=== PATIENT | female | born 1965 | race Caucasian/White ===

== ENCOUNTER 2017-11-29 20:34 | Emergency (ER) | payer OTHER ==
[~2017-11-29] VITALS: Ht 160 cm; Wt 99.8 kg
--- NOTE | 2017-11-29 20:43 | ED THROAT/DENTAL COMPLAINT ---
History of Present Illness General Chief Complaint: Sore Throat, Dental Pain Stated Complaint: SWELLING R SIDE FACE, TOOTHACHE Source: patient Exam Limitations: no limitations Vital Signs & Intake/Output Vital Signs & Intake/Output Vital Signs Date Time Temp Pulse Resp B/P B/P Pulse O2 O2 Flow FiO2 Mean Ox Delivery Rate 11/29 2334 98.1 75 20 110/62 93 Room Air 11/29 2046 99.1 97 20 137/65 93 Room Air ED Intake and Output 11/30 0000 11/29 1200 Intake Total 0 Output Total Balance 0 Intake, Oral 0 Patient 220 lb Weight Weight Estimated Measurement Method Allergies Coded Allergies: MDX - Aspirin (04/10/10) MDX - Codeine (04/10/10) MDX - Penicillin V (From Penicillin V Potassium) (04/10/10) MDX - Sulfur (04/10/10) Uncoded Allergies: Food Allergies EGG WHITE, FRIED FOODS Med Allergies PCN, ASA, SULFA, CODEINE Reconcile Medications Aspirin (Alireza Chewable Aspirin) 81 MG TAB.CHEW HEART (Reported) Calcium Carb/Vit D3/Minerals (Calcium +D & Minerals Chew Tab) 600 MG-400 TAB.CHEW SUPPLEMENT (Reported) Cholecalciferol (Vitamin D3) (Vitamin D) 1,000 UNIT TABLET SUPPLEMENT (Reported ) TWO TABLETS DAILY Escitalopram Oxalate 10 MG TABLET DEPRESSION (Reported) Losartan Potassium (Cozaar) 25 MG TABLET DIABETES (Reported) Metformin HCl 500 MG TABLET DIABETES (Reported) Niacin (Niaspan) 500 MG TAB.ER.24H HYPERLIPIDEMIA (Reported) Nitroglycerin (Nitro-Dur) 0.2 MG/HOUR PATCH.TD24 CP (Reported) Norethindrone (Erin) 0.35 MG TABLET CONTRACEPTIVE (Reported) Olanzapine (Zyprexa) 15 MG TABLET SCHIZOPHRENIA (Reported) Omeprazole 20 MG CAPSULE.DR FORRESTER (Reported) Risperidone (Risperdal) 0.5 MG TABLET DEMENTIA (Reported) Risperidone (Risperdal) 2 MG TABLET DEMENTIA (Reported) Rosuvastatin Calcium (Crestor) 5 MG TABLET HIGH CHOLESTEROL (Reported) Sennosides/Docusate Sodium (Docusate Sodium-Senna Tablet) 8.6 MG-50 MG TABLET CONSTIPATION (Reported) 2 TABS QHS Vitamin E (Dl,Tocopheryl Acet) (Vitamin E) 400 UNIT CAPSULE SUPPLEMENT ( Reported) 2 CAPSULES DAILY Triage Note: PT BIBA FROM ECF DUE TO WORSENING RIGHT UPPER TOOTH PAIN ?CYST. PT ALSO HAVING RIGHT EAR PAIN AND RIGHT EYE PAIN. RIGHT EYE IS RED AND SWOLLEN. Triage Nurses Notes Reviewed? yes HPI: 52 yo F PMH MS, DM presenting with dental pain, right facial swelling. Patient endorses right upper mouth/dental pain for the last several months ("its been that way for eons"), worse in the last 1-2 weeks, per patient scheduled for follow up with dentist later 12/12 for removal. New right facial swelling for the last 2-3 days , worst around right eyebrow in area of recent abrasion from scratching face, no pain with eye movement, no visual changes. C/O generalized pain and swelling to right face. (Wilbur DEL CASTILLO,Jeanmarie) Past History Travel History Traveled to [place] past 21 day No Medical History Any Pertinent Medical History? see below for history Surgical History Surgical History: none Psychosocial History What is your primary language Com[place]an Family History Hx Contributory? No (Jeanmarie Bowles MD) Review of Systems Review of Systems Constitutional: Reports: no symptoms. EENTM: Reports: eye pain, mouth pain, tooth pain. Respiratory: Reports: no symptoms. Cardiovascular: Reports: no symptoms. GI: Reports: no symptoms. Genitourinary: Reports: no symptoms. Musculoskeletal: Reports: no symptoms. Skin: Reports: no symptoms. Neurological/Psychological: Reports: no symptoms. Hematologic/Endocrine: Reports: no symptoms. Immunologic/Allergic: Reports: no symptoms. All Other Systems: Reviewed and Negative (Wilbur DEL CASTILLO,Jeanmarie) Physical Exam Physical Exam General Appearance: well developed/nourished, no apparent distress, alert, awake Head: swelling, tenderness Eyes: Bilateral: PERRL, EOMI. Mouth/Throat: dental tenderness Neck: normal inspection, full range of motion, no midline tenderness Cardiovascular/Respiratory: normal breath sounds, regular rate/rhythm, no respiratory distress Comments: HEENT: Dental trudy in eroded right upper posterior molar without erythema, drainage, or peripical abscess, mild TTP, abrasion to rigth lateral eyebrow with associated erythema and swelling, EOMI without pain or restriction Core Measures ACS in differential dx? No Sepsis Present: No Sepsis Focused Exam Completed? No (Jeanmarie Bowles MD) Progress Differential Diagnosis: aspirated tooth, carious tooth, epiglottitis, Ludwigs angina, meningitis, odontogenic abscess, alanna-tonsillar abscess, pharyngeal for. body, stomatitis/gingivitis, strep pharyngitis, tooth fracture Plan of Care: Orders Procedure Date/time Status LACTIC ACID 11/29 2113 Complete CBC WITHOUT DIFFERENTIAL 11/29 2113 Complete BASIC METABOLIC PANEL 11/29 2113 Complete Laboratory Tests 11/29/172119: Anion Gap 15, Estimated GFR > 60, BUN/Creatinine Ratio 14.0, Glucose 194 H, Lactic Acid 1.8, Calcium 9.5, CBC w Diff NO MAN DIFF REQ, RBC 4.63, MCV 83.4, MCH 26.9 L, RDW 15.4 H, MPV 8.8, Gran % 63.0, Lymphocytes % 24.4, Monocytes % 10.2 H, Eosinophils % 2.0, Basophils % 0.4, Absolute Granulocytes 5.4, Absolute Lymphocytes 2.1, Absolute Monocytes 0.9 H, Absolute Eosinophils 0.2, Absolute Basophils 0, PUBS MCHC 32.2 L Physician MDM: 52 yo F PMH MS, DM presenting with dental pain, right facial swelling. VSS, exam as above. DDx: Cellulitis, Dental infection, deep head/neck space infection, low concern for orbital cellulitis or meningitis. Labs unremarkable. Clindamycin for dental infection and cellulitis. Signed out, dispo pending imaging, likely D/C back to ECF on Clindamycin with close dental f/u if no deep space infection on CT. (Wilbur DEL CASTILLO,Jeanmarie) Comments: 11/30/2017 1:24:02 AM patient signed out to me by Dr. Bowles at shift varnish remover. CAT scan reveals parotitis. (Maria Fernanda DEL CASTILLO,Brett Nunez) Departure Departure Disposition: HOME OR SELF CARE Condition: Stable Referrals: Kevyn DEL CASTILLO,Yanet (PCP/Family) Departure Forms: Customer Survey General Discharge Information (Wilbur DEL CASTILLO,Jeanmarie) Departure Clinical Impression Primary Impression: Infected dental carries Secondary Impressions: Parotitis, acute Additional Instructions: Clindamycin as prescribed. Ibuprofen as needed for pain. Follow-up with your primary care physician on Friday for reevaluation. Follow-up with your dentist this week. Return if any concerns or sudden worsening. Please note that there might be incidental findings in your evaluation that are unrelated to the current emergency department visit. Please notify your primary care doctor about this emergency department visit in order to obtain and review all of the testing performed so that these incidental findings can be monitored as needed. If you had an x-ray performed, please understand that some fractures may not be seen on the initial set of x-rays. If your symptoms persist you might need a repeat set of x-rays to check for such a fracture. If you had a laceration evaluated, please understand that foreign bodies such as glass or wood may not be visible to the naked eye or on plain x-rays. If the wound becomes red, swollen, increasingly more painful or if there is any drainage from the wound, please have it reevaluated by a physician for the possibility of a retained foreign body. If you're unable to follow up as outlined in the discharge instructions please return to the emergency department. Thank you for choosing the [facility] Emergency Department for your care. It was a pleasure to serve you today. Brett Irving M.D. [facility] (Maria Fernanda DEL CASTILLO,Brett Nunez)
[2017-11-29] MEDS ORDERED: DOCUSATE SODIU1 EACH PO (21:02)
[2017-11-29] MEDS ORDERED: ESCITALOPRAM OX10 MG PO (21:03)
[2017-11-29] MEDS ORDERED: COZAAR25 M1 PO (21:04)
[2017-11-29] MEDS ORDERED: NIASPAN500 M1 PO (21:11)
[2017-11-29] MEDS ORDERED: METFORMIN HCL500 M3 PO (21:11)
[2017-11-29] MEDS ORDERED: ZYPREXA15 M1 PO (21:13)
[2017-11-29] MEDS ORDERED: NITRO-DUR1 EACH (21:13)
[2017-11-29] MEDS ORDERED: BAYER CHEWABLE81 MG PO (21:14)
[2017-11-29] MEDS ORDERED: CALCIUM +D & M1 EACH PO (21:15)
[2017-11-29] MEDS ORDERED: CAMILA0.35 M1 (21:16)
[2017-11-29] MEDS ORDERED: CRESTOR5 M1 PO (21:16)
[2017-11-29] MEDS ORDERED: OMEPRAZOLE20 M2 PO (21:17)
[2017-11-29] MEDS ORDERED: RISPERDAL0.5 M1 (21:18)
[2017-11-29] MEDS ORDERED: RISPERDAL2 M1 PO (21:19)
[2017-11-29] MEDS ORDERED: VITAMIN D1000 UNIT PO (21:21)
[2017-11-29] MEDS ORDERED: VITAMIN E400 UNI1 PO (21:21)
[2017-11-29 21:30] LABS: ABSOLUTE BASOPHIL COUNT 0 /CUMM (0.0-0.2); ABSOLUTE EOSINOPHIL COUNT 0.2 /CUMM (0.0-0.7); ABSOLUTE GRANULOCYTE CT 5.4 /CUMM (1.4-6.5); ABSOLUTE LYMPH COUNT 2.1 /CUMM (1.2-3.4); ABSOLUTE MONOCYTE COUNT 0.9 /CUMM (0.10-0.60); BASOPHIL % 0.4 % (0.0-2.0); HEMATOCRIT 38.6 % (37-47); MEAN CORPUSCULAR HGB 26.9 PG (27.0-31.0); MEAN CORPUSCULAR HGB CONC 32.2 G/DL (33.0-37.0); MEAN CORPUSCULAR VOLUME 83.4 FL (81.0-99.0); MEAN PLATELET VOLUME 8.8 FL (7.4-10.4); PLATELET COUNT 312 /CUMM (130-400); RBC DISTRIBUTION WIDTH 15.4 % (11.5-14.5); RED BLOOD CELL CT 4.63 /CUMM (4.20-5.40); WHITE BLOOD CELL COUNT 8.6 /CUMM (4.8-10.8)
--- NOTE | 2017-11-29 23:26 | CT SCAN REPORT ---
EXAMINATION: CT NECK WITH CONTRAST CT FACE/SINUS WITH CONTRAST CLINICAL INFORMATION: Right upper molar and jaw swelling. COMPARISON: None TECHNIQUE: Multidetector volumetric imaging of the face and neck was performed after administration of 95 mL of Optiray 320 IV contrast. Coronal and sagittal reformatted images were obtained and reviewed. FINDINGS: There are prominent lymph nodes along the right jugular chain and within the right parotid gland. Prominent right submandibular lymph nodes. For instance, right jugular chain node measuring 1.8 cm in long axis dimension on series 3 image 35. Right parotid lymph node measuring 1.3 cm on series 3 image 21. There is inflammatory stranding in the soft tissues surrounding the right parotid gland. No encapsulated fluid collection. Inflammatory changes extend anteriorly along the lateral aspect of the right orbit. No retropharyngeal fluid collection. The airway is patent. The larynx is unremarkable. The epiglottis is unremarkable. The cervical vasculature is unremarkable. The visualized portion of the thyroid gland is unremarkable. The lung apices are clear. The visualized intracranial structures are unremarkable. There is a mucous retention cyst in the left maxillary sinus. The remaining paranasal sinuses are well aerated. There are dental caries noted, most prominently involving the right first maxillary molar. No periapical lucency. No acute maxillofacial fracture. Multilevel degenerative changes throughout the cervical spine. Diffuse disc space narrowing with prominent endplate osteophytes. The orbits appear unremarkable. The globes are intact. Slight rightward deviation of the nasal septum. IMPRESSION: Inflammatory changes surrounding the right parotid gland with extension anteriorly to the right periorbital region. Enlarged lymph nodes within the right parotid gland and in the right cervical region. The finding is suggestive of parotiditis. No encapsulated fluid collection. Right maxillary molar dental caries.
[2017-11-30 02:17] VITALS: BP 119/58
== END 2017-11-30 02:08 ==
LOC: ERH 20:34
PROVIDERS: Student in an Organized Health Care Education/Training Program
DX: K04.7 Periapical abscess without sinus (principal); K02.9 Dental caries, unspecified; K11.21 Acute sialoadenitis
CPT/HCPCS: 96374